=== PATIENT | male | born 1985 | race Asian ===

== ENCOUNTER 2021-07-01 23:08 | Inpatient (IN) | payer OTHER ==
[~2021-07-01] VITALS: Ht 162.6 cm; Wt 73.5 kg
--- NOTE | 2021-07-01 23:29 | NUR ---
CALLED TO TRIAGE NOT ANSWER. NOT IN WAITING ROOM
[2021-07-01] MEDS ORDERED: CHLORDIAZEPOXIDE HCL 25 MG CAPSULE ONE (23:57)
[2021-07-02] MEDS ORDERED: CHLORDIAZEPOXIDE HCL 25 MG CAPSULE PO ONE
--- NOTE | 2021-07-02 00:05 | NUR ---
PATIENT BIBSTAFF AT [facility]. PATIENT C/O MID STERNAL PAIN NON RADIATING, PALPITATION, HEADACHE AND ABD PAIN. PT WAS ADMITTED TODAY FOR ALCOHOL DETOX. PATIENT LAST DRANK 10 HRS AGO. PATIENT IS A/O X 4, RR EVEN AND UNLABORED, NO SIGNS OF SOB NOTED. PATIENT IS CONNECTED TO [employer].
[2021-07-02 00:38] LABS: BASOPHILS # (AUTO) 0.1 K/uL (0.0-0.2); BASOPHILS % (AUTO) 0.4 % (0.0-2.0); EOSINOPHILS % (AUTO) 0.2 % (0.0-6.0); HEMATOCRIT 44 % (39-51); HEMOGLOBIN 15.4 g/dL (13.5-17.5); LYMPHOCYTES # (AUTO) 3.6 K/uL (0.8-4.8); LYMPHOCYTES % (AUTO) 25.4 % (20.0-44.0); MEAN CORPUSCULAR HGB CONC 35 g/dl (31.0-36.0); MEAN CORPUSCULAR VOLUME 88 fL (80-96); MONOCYTES # (AUTO) 0.8 K/uL (0.1-1.30); MONOCYTES % (AUTO) 5.9 % (2.0-12.0); NEUTROPHILS # (AUTO) 9.8 K/uL (1.8-8.9); NEUTROPHILS % (AUTO) 68.1 % (43.0-81.0); PLATELET COUNT (AUTO) 188 K/uL (150-450); RED BLOOD CELL COUNT(AUTO) 5.05 MIL/uL (4.5-6.0); WHITE BLOOD COUNT (AUTO) 14.4 K/uL (4.3-11.0)
[2021-07-02 00:46] LABS: CALCIUM, SERUM 8.5 mg/dL (8.5-10.1); CARBON DIOXIDE 18 mmol/L (21-32); CHLORIDE 95 mmol/L (98-107); CREATININE 0.8 mg/dL (0.6-1.3); GLUCOSE 87 mg/dL (74-106); POTASSIUM 3.4 mmol/L (3.5-5.1); SODIUM SERUM 136 mmol/L (136-145); UREA NITROGEN, BLOOD 12 mg/dL (7-18)
[2021-07-02] MEDS ORDERED: IV NS 0.9% 1,000 ML BAG IV ONE ×2 (01:30→04:30)
[2021-07-02] MEDS ORDERED: LORAZEPAM INJ 2 MG/ML VIAL IV ONE (03:00)
--- NOTE | 2021-07-02 03:15 | NUR ---
LACTIC ACID 4.8
[2021-07-02] MEDS ORDERED: LORAZEPAM INJ 2 MG/ML VIAL ONE (04:00)
--- NOTE | 2021-07-02 04:00 | NUR ---
MRSA SWAB COLLECTED AND SENT TO LAB. PATIENT'S BELONGINGS LIST DONE.
--- NOTE | 2021-07-02 04:26 | NUR ---
COVID SWAB COLLECTED AND SENT TO LAB
[2021-07-02 05:26] LABS: BILIRUBIN,DIRECT 0.2 mg/dL (0.0-0.2); BILIRUBIN,TOTAL 1.1 mg/dL (0.2-1.0)
--- NOTE | 2021-07-02 05:36 | NUR ---
REFLEX LACTIC ACID 2.3
[2021-07-02] MEDS ORDERED: ONDANSETRON HCL/PF 4 MG/2 ML VIAL IVP PRN (06:30)
[2021-07-02] MEDS ORDERED: MAGNESIUM HYDROXIDE 30 ML UDC PO PRN (06:30)
[2021-07-02] MEDS ORDERED: Z GUARD REMEDY 2 OZ OINT TP PRN (06:30)
[2021-07-02] MEDS ORDERED: ACETAMINOPHEN 325 MG TABLET PO PRN (06:30)
[2021-07-02] MEDS ORDERED: MAG HYDROX/AL HYDROX/SIMETH 30 ML UDC PO PRN (06:30)
[2021-07-02] MEDS ORDERED: ZOLPIDEM TARTRATE 5 MG TABLET PO PRN (06:30)
[2021-07-02] MEDS ORDERED: PANTOPRAZOLE 40 MG VIAL ONE (09:24)
[2021-07-02] MEDS: IV NS 0.9% 1,000 ML IV PRN ×2 (09:30→22:27)
[2021-07-02] MEDS: PANTOPRAZOLE 40 MG VIAL IV SCH (09:30)
[2021-07-02] MEDS ORDERED: GABA600T12 PO (12:51)
[2021-07-02] MEDS ORDERED: DICL50TA9 PO (12:51)
[2021-07-02] MEDS ORDERED: AMIT25TA9 PO (12:51)
--- NOTE | 2021-07-02 13:57 | NUR ---
GOT BED 320-1
--- NOTE | 2021-07-02 14:14 | NUR ---
Report given to Ange COLÓN for juliette.
[2021-07-02 14:30] VITALS: BP 142/84
--- NOTE | 2021-07-02 14:36 | NUR ---
patient wheeled via gurney accompanied by RN and emt in no distress. RN assigned to patient at bedside to assume care.
[2021-07-02] MEDS: LORAZEPAM INJ 2 MG/ML VIAL IV PRN ×3 (15:00→23:43)
--- NOTE | 2021-07-02 15:00 | NUR ---
DOG WALKER ADMITTING NOTES [facility], PATIENT IS AWAKE, ALERT AND ORIENTED X 4, ABLE TO MAKE NEEDS KNOWN, NOT IN ANY FORM OF ACUTE DISTRESS NOTED. ON ROOM AIR TOLERATING WELL, NO SOB NOTED. PATIENT WAS ABLE TO AMBULATE UPON TRANSFER TO BED. THERE WERE NO SKIN ISSUES IDENTIFIED. NO COMPLAINTS OF PAIN AT THE TIME OF ASSESSMENT. HOOKED TO TELE MONITOR, SINUS RHYTHM HR AT 70'S. NO COMPLAINTS OF CHEST PAIN AT THIS TIME. SAFETY PRECAUTIONS IN PLACE; BED ON LOWEST LOCKED POSITION, SIDE RAILS UP X 2, CALL LIGHT WITHIN EASY REACH. WILL CONTINUE TO MONITOR ACCORDINGLY.
--- NOTE | 2021-07-02 18:21 | NUR ---
TEMPERING KILN TENDER CLOSING NOTES PATIENT IN BED, ASLEEP, EASILY AWAKEN BY VERBAL AND TACTILE STIMULI, NOT IN ANY FORM OF ACUTE DISTRESS NOTED. ON ROOM AIR TOLERATING WELL, NO SOB NOTED. NO COMPLAINTS OF PAIN AT THIS TIME. ON TELE MONITOR, SINUS RHYTHM HR AT 70'S. NO COMPLAINTS OF CHEST PAIN AT THIS TIME. SAFETY PRECAUTIONS IN PLACE; BED ON LOWEST LOCKED POSITION, SIDE RAILS UP X 2, CALL LIGHT WITHIN EASY REACH. WILL ENDORSE TO ONCOMING SHIFT FOR TONG.
[2021-07-02 20:00] VITALS: BP 128/80
--- NOTE | 2021-07-02 20:00 | NUR ---
MS RN OPENING NOTE RECEIVED PT AWAKE IN BED. A/OX4. PT ON RA. NO SOB NOTED. NO S/S OF RESPIRATORY DISTRESS. PT IS AMBULATORY WITH [facility]. PT HAS NO PAIN AT THIS TIME. IV ACCESS IN RAC # 18, INFUSING NS@ 75ML/HR. IV IS INTACT, PATENT, AND FLUSHING WELL. SAFETY MEASURES MAINTAINED . BED IN LOWEST LOCKED POSITION, HOB ELEVATED, SIDE RAILS UP X2. CALL LIGHT AND TABLE WITHIN REACH. WILL CONTINUE WITH PLAN OF CARE
--- NOTE | 2021-07-02 21:04 | NUR ---
PT C/O ANXIETY AND INABILITY TO SLEEP. PT APPEARS IRRITABLE. ATIVAN INJ 2MG/ML Q2HR PRN ADMINISTERED AT THIS TIME. WILL CONTINUE TO MONITOR.
--- NOTE | 2021-07-02 23:43 | NUR ---
PT C/O ANXIETY AND INABILITY TO SLEEP. PT APPEARS IRRITABLE. ATIVAN INJ 2MG/ML Q2HR PRN ADMINISTERED AT THIS TIME. WILL CONTINUE TO MONITOR.
[2021-07-03] VITALS: BP 117/80
[2021-07-03 04:00] VITALS: BP 137/98
[2021-07-03] MEDS: LORAZEPAM INJ 2 MG/ML VIAL IV PRN ×2 (05:24→08:42)
--- NOTE | 2021-07-03 06:00 | NUR ---
RN CLOSING NOTE PT IN BED AWAKE. NO CO PAIN OR SOB AT THIS TIME. REMAINED STABLE THROUGHOUT SHIFT. SAFETY PRECAUTIONS MAINTAINED AT ALL TIMES. WILL ENDORSE TO AM SHIFT.
[2021-07-03 06:27] LABS: ALBUMIN 3.5 g/dL (3.4-5.0); BILIRUBIN,TOTAL 2.1 mg/dL (0.2-1.0); CREATININE 0.7 mg/dL (0.6-1.3); MAGNESIUM 1.7 mg/dL (1.8-2.4); PHOSPHORUS 2.4 mg/dL (2.5-4.9); POTASSIUM 3.3 mmol/L (3.5-5.1); TOTAL PROTEIN, SERUM 6.3 g/dL (6.4-8.2)
[2021-07-03 06:31] LABS: BASOPHILS % (AUTO) 0.4 % (0.0-2.0); EOSINOPHILS % (AUTO) 2.3 % (0.0-6.0); HEMATOCRIT 37 % (39-51); HEMOGLOBIN 12.5 g/dL (13.5-17.5); LYMPHOCYTES % (AUTO) 19.3 % (20.0-44.0); MEAN CORPUSCULAR HGB CONC 34 g/dl (31.0-36.0); MEAN CORPUSCULAR VOLUME 90 fL (80-96); MONOCYTES # (AUTO) 0.8 K/uL (0.1-1.30); NEUTROPHILS # (AUTO) 7.3 K/uL (1.8-8.9); PLATELET COUNT (AUTO) 136 K/uL (150-450); WHITE BLOOD COUNT (AUTO) 10.4 K/uL (4.3-11.0)
--- NOTE | 2021-07-03 08:18 | NUR ---
TELE/RN OPENING NOTE RECEIVED PT AWAKE IN BED. A/O X2. PT ON RA. NO SOB NOTED. NO S/S OF RESPIRATORY DISTRESS. PT IS AMBULATORY WITH [facility]. PT HAS NO PAIN AT THIS TIME. IV ACCESS ON LEFT FA #20G, INFUSING NS@ 75ML/HR. SAFETY MEASURES MAINTAINED . BED IN LOWEST LOCKED POSITION, HOB ELEVATED, SIDE RAILS UP X2. CALL LIGHT AND TABLE WITHIN REACH. WILL CONTINUE WITH PLAN OF CARE
[2021-07-03] MEDS: PANTOPRAZOLE 40 MG VIAL IV SCH (08:42)
[2021-07-03] MEDS ORDERED: MULTIVITAMINS,THERAGRAN 1 UDTAB TABLET PO SCH (09:00)
[2021-07-03] MEDS ORDERED: THIAMINE HCL 100 MG TABLET NG SCH (09:00)
[2021-07-03] MEDS ORDERED: FOLIC ACID 1 MG TABLET PO SCH (09:00)
[2021-07-03 11:16] VITALS: BP 133/98
[2021-07-03] MEDS ORDERED: Magnesium 1GM/D5W 100ML PREMIX 100 ML IV SCH (11:43)
--- NOTE | 2021-07-03 11:49 | NUR ---
SS consult: SS consult requested for substance use. Pt is a 36-year-old, male. SW met with pt at his bedside in the med-surg unit. Pt was alert and oriented x3. Pt presented agitated and irritable. Pt repeatedly stated that he was feeling frustrated and irritated at staff. Pt presented aggressive and was attempting to pull out his IV. Per chart, pt was brought in by staff from detox center on 07/02/21. Pt stated that he did not recall the situation which brought him into the hospital and refused to complete interview questions with this SW. SW offered the pt addiction resources. Pt declined the resources stating that he did not want them. SW discussed discharge plans with the pt. Pt stated that he plans to return to his prior living arrangement at the detox center. CLAUDIO confirmed with DIALLO Ko that the pt will be accepted back at [facility] ([facility] [place] [address]; ). PLAN: Pt will return to [facility] at the time of discharge. No further SS intervention at this time, however, SW will remain available as needed. RESOURCES: Substance use resources provided included: [facility]stance [facility] ([facility]) ; [facility] [address] [facility] [place] [address] ; [facility] [address] [facility] [address] ; [facility] [address] [phone] ; [facility] [address] [facility] [phone] ; [facility] [address] [address] ; [facility]; [facility] [place]; [place] [facility]; [facility]
[2021-07-03] MEDS ORDERED: K PHOS NEUTRAL 250 MG TABLET PO ONE (12:00)
[2021-07-03] MEDS ORDERED: POTASSIUM CHLORIDE 20 MEQ TAB.PRT.SR PO ONE (12:00)
--- NOTE | 2021-07-03 12:00 | NUR ---
MS/OBSERVATION NURSE NOTES PATIENT WAS MEDICALLY STABLE AND DR. KAMARA ORDERED DISCHARGE. PATIENTIS LAERT AND ORIENTED X3, ABLE TO MAKE NEEDS KNOWN. DISCHARGE INSTRUCTIONS GIVEN TO THE PATIENT, ABLE TO SIGN AND BELONGINGS ACCOUNTED FOR. IV ACCESS DISCONTINUED AND PATIENT WAS PICKED UP BY A STAFF FROM THE [facility].
[2021-07-04] MEDS ORDERED: PANTOPRAZOLE 40 MG TABLET.DR PO SCH (07:30)
== END 2021-07-03 12:00 | DRG 897 ==
LOC: ER 23:08 → TRANSITION 07-02 04:24 → TELE 07-02 14:04 → MED 07-03 10:23
PROVIDERS: ADMIT Internal Medicine; ATTEND Internal Medicine
DX: F10.239 Alcohol dependence with withdrawal, unspecified (principal); E87.2 Acidosis; Y90.6 Blood alcohol level of 120-199 mg/100 ml; D72.829 Elevated white blood cell count, unspecified; Z20.822 Contact with and (suspected) exposure to COVID-19; F19.10 Other psychoactive substance abuse, uncomplicated
CPT/HCPCS: 36415; 71045-TC; 80048-TC; 80053-TC; 80061-TC; 82247-TC; 82248-TC; 83605-TC; 83735-TC; 84100-TC; 84484-TC; 85025-TC; 87081-TC; C9113; G0378; G0480; J2060; J7030